=== PATIENT | male | born 1990 | race Caucasian/White ===

== ENCOUNTER 2022-09-12 08:26 | Outpatient (CLI) | payer MEDICAID, SELFPAY | END 2022-09-12 08:27 | disposition home or self-care (01) | LOC: NFLDREF 09-13 01:36 | PROVIDERS: PCP Family Medicine; Referring Provider Family Medicine; Visit Provider Family Medicine | DX: Z00.00 Encounter for general adult medical examination without abnormal findings (principal); R94.5 Abnormal results of liver function studies; Z13.1 Encounter for screening for diabetes mellitus | CPT/HCPCS: 80061; 82947 ==

== ENCOUNTER 2023-10-28 06:11 | Outpatient (CLI) | payer MEDICAID, SELFPAY ==
--- NOTE | 2023-10-28 07:41 | W.ANESCHARGE ---
Anesthesia Charges Start Date/Time Anesthesia Start Date: 10/28/23 Anesthesia Start Time: 07:16 Stop Date/Time Anesthesia Stop Date: 10/28/23 Anesthesia Stop Time: 07:37
--- NOTE | 2023-10-28 08:51 | W.ANESCHARGE ---
Anesthesia Charges Start Date/Time Anesthesia Start Date: 10/28/23 Anesthesia Start Time: 07:16 Stop Date/Time Anesthesia Stop Date: 10/28/23 Anesthesia Stop Time: 07:37
== END 2023-10-28 06:12 | disposition home or self-care (01) ==
PROVIDERS: PCP Family Medicine; Visit Provider Surgery
DX: R19.8 Other specified symptoms and signs involving the digestive system and abdomen (principal)
CPT/HCPCS: 00731; 43239; 88305; J2704; J3010

== ENCOUNTER 2024-03-25 09:21 | Outpatient (CLI) | payer MEDICAID, SELFPAY ==
--- OUTSIDE RECORDS SUMMARY | 2024-03-25 09:23 | XMS_ITS | Encounter Summary ---
Author Organization [facility] Address [address] [place] [address] Care Team Providers Care Gas Systems Worker Name Role Phone Elsewhere, Pcp Primary Care Provider Unavailabl e Reason for Visit * Reason Comments Discharge Summary Encounter Details Date Type Department Care Team (Late st Contact Info) Description 03/18/2024 Documentation Department of Rehabilitation in [address] [place] [id number] Kacey Riddle, P.T. Discharge Summary Social History Tobacco Use Types Packs/Day Years Used Date Smoking Tobacco: Every Day Cigarettes Smokeless Tobacco: Former Alcohol Use Standard Drinks/Week Comments Yes 0 (1 standard drink = 0.6 oz pur e alcohol) Rarely Nutrition Answer Date Recorded Nutrition: EVOO Fat Source Unknown 08/04 Nutrition: Servings of Fruits/Vegetables per Day Not on file 08/04/2020 Dental Answer Date Recorded Dental: Regular Dentist Unknown 08/05/19 21 Sex and Gender Information Value Date Recorded Sex Assigned at Not on file Legal Sex Male 3:16 PM SALES OFFICE ASSISTANT Gender Identity Not on file Sexual Orientation Not on file documented as of this encounter Progress Notes * Kacey Riddle, P.T. - 03/18/2024 2:01 PM CDT PHYSICAL THERAPY DISCHARGE NOTE Medical Diagnosis: Pain Low Back Unspecified Date of Onset: 12/15/2023 Start of care date: 01/13/2024 Number of visits from start of care: 3 Date of final visit: 02/17/2024 DISCHARGE STATUS STATUS OF GOALS: Current status unknown as pt has not been seen in physical therapy since their last visit. REASON FOR DISCHARGE: Pt did not return for therapy. DISCHARGE PLAN/RECOMMENDATIONS: The patient is encouraged to continue with therapeutic recommendations provided throughout the course of care. If additional skilled care is indicated in the future, anew physical therapy order and evaluation would be required. documented in this encounter Plan of Treatment Not on file documented as of this encounter Visit Diagnoses Not on filedocumented in this encounter Additional Health Concerns Assessment Noted Time PHQ-9 Depression Total Score: 9 07/16/19 12 9:00 AM SALES OFFICE ASSISTANT documented as of this encounter Care Teams Gas Systems Worker Relationship Specialty Start Date End Date Elsewhere, Pcp PCP - General Family Medicine 08/08/18 documented as of this encounter
--- OUTSIDE RECORDS SUMMARY | 2024-03-25 09:23 | XMS_ITS | Referral Summary ---
Author Organization [facility] Address [address] [place] [address] Care Team Providers Care Bull Gang Supervisor Name Role Phone Elsewhere, Pcp Primary Care Provider Unavailabl e Source Comments Patient records contain information from all sites at [facility]. For routine questions regarding patient records, call [phone] during business hours, M-F 8:00 AM - 5:00 PM Central Time. Record requests for emergency care only can be directed to [phone] at any time.[facility] Encounters Date Type Department Care Team Description 03/18/2024 Documentation Department of Rehabilitation in [address] [place] [address] Kacey Riddle, P.T. Discharge Summary 02/17/2024 2:15 PM CDT Clinical Support Department of Rehabilitation in [address] [place] [address] Jay Jackson M.D. Kacey Riddle, P.T. Pain Low Back Unspecified 01/23/2024 12:30 PM CDT Clinical Support Department of Rehabilitation in [address] [place] [address] Jay Jackson M.D. Vika Winslow P.T.Antoine Pain Low Back Unspecified 01/13/2024 4:00 PM CDT Comprehensive Visit Department of Rehabilitation in [address] [place] [address] Jay Jackson M.D. Kacey Riddle, P.T. Pain Low Back Unspecified (Primary Dx); Other Chronic Pain from Last 3 Months Allergies No known active allergies Medications NYASIA MAINTENA 300 mg injection INJECT 300 MG INTRAMUSCULARLY EVERY FOUR WEEKS 5 07/16/19 19 Active clonazePAM (KlonoPIN) 1 mg tablet TAKE ONE TABLET BY MOUTH IN THE MORNING AND 2 TABLETS BY MOUTH AT BEDTIME 3 07/17/19 19 Active cyclobenzaprin e (FLEXERIL) 10 mg tablet Take 1 tablet by mouth. 12/19/19 17 Active HYDROcodone-ac etaminophen (NORCO) 10-325 mg per tablet TAKE 1-2 TABLETS BY MOUTH EVERY 4-6 HOURS NEEDED FOR POST PROCEDURE PAIN DO NOT EXCEED 8 TABLETS PER DAY 0 08/04/19 19 Active naproxen (NAPROSYN) 500 mg tablet TAKE ONE TABLET BY MOUTH TWO TIMES A DAY NEEDED 0 06/18/19 19 Active valbenazine (INGREZZA) 80 mg capsule capsule Take 1 capsule by mouth. 02/18/20 17 Active omeprazole 20 mg tablet,delayed release (DR/EC) Take 20 mg by mouth. 01/27/20 18 Active QUEtiapine (SEROquel) 25 mg tablet Take 25 mg by mouth. 10/15/19 17 Active cyclobenzaprin e (FLEXERIL) 10 mg tablet daily as needed. Active naproxen (NAPROSYN) 500 mg tablet as needed. Active cyclobenzaprin e (FLEXERIL) 1.25 mg tablet daily as needed. Active dextromethorph an-guaiFENesin (TUSSIN DM) 10-100 mg/5 mL liquid Adult Robitussin Peak Cold DM 10 mg-100 mg/5 mL oral liquid Active nicotine polacrilex (NICORETTE) 2 mg gum 2 (two) times a day as needed. Active esomeprazole (NexIUM) [address] capsule Take 40 mg by mouth. 11/07/19 Active memantine (NAMENDA) 10 mg tablet Take 10 mg by mouth 2 (two) times a day. 05/22/20 22 Active modafiniL (PROVIGIL) 200 mg tablet Take 400 mg by mouth daily. 05/11/20 22 Active ARIPiprazole (ABILIFY) 20 mg tablet Take 20 mg by mouth daily. 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 02/10/2013 Schizophrenia Paranoid 02/10/2013 Dependence Nicotine 02/10/2013 Noncompliance With Medication Regimen 02/10/2013 Other Specified Anxiety Disorders 02/21/2011 Injury Urethra Initial 09/28/2008 Hematuria 09/28/2008 Immunizations Name Administration Dates Next Due Influenza TIV (IM) 03/01/2013,03/13/2012 Influenza, Seasonal, Injectable 03/01/2013,03/13 Tdap 03/16/2012 Social History Tobacco Use Types Packs/Day Years Used Date Smoking Tobacco: Every Day Cigarettes Smokeless Tobacco: Former Tobacco Cessation:Ready to Q uit: Not Asked; Counseling Given: Not Answered Alcohol Use Standard Drinks/Week Comments Yes 0 [...] on file Legal Sex Male 3:16 PM CHARGEBACK ANALYST Gender Identity Not on file Sexual Orientation Not on file Last Filed Vital Signs Vital Sign Reading Time Taken Comments Blood Pressure 109/77 07/20/2023 1:00 AM CHARGEBACK ANALYST Pulse 86 07/20/2023 1:00 AM CHARGEBACK ANALYST Temperature 36.4 ??C (97.5 ??F) 05/29/2023 9:15 PM CS T Respiratory Rate 12 07/20/2023 1:00 AM CHARGEBACK ANALYST Oxygen Saturation 95% 07/20/2023 1:00 AM CHARGEBACK ANALYST Inhaled Oxygen Concentration - - Weight 114 kg (251 lb 5.2 oz) 07/19/2023 9:54 PM CHARGEBACK ANALYST Height 180 cm (5' 10.87) 07/25/2014 11:56 AM CS T Body Mass Index 35.19 07/25/2014 11:56 AM CHARGEBACK ANALYST Plan of Treatment Not on file Procedures Procedure Name Priority Date/Time Associated Diagnosis Comments COMPREHENSIVE METABOLIC PANEL, S/P STAT 07/19/2023 10:36 PM CHARGEBACK ANALYST from Last 3 Months or Most Recently Relevant to Health Maintenance Results * (ABNORMAL) Comprehensive Metabolic Panel (07/19/2023 10:36 PM CHARGEBACK ANALYST) Potassium, P 4.4 3.6 - 5.2 mmol/L 07/19/2023 11:11 PM CHARGEBACK ANALYST FRMT Sodium, P 142 135 - 145 mmol/L 07/19/2023 11:06 PM CHARGEBACK ANALYST FRMT Chloride, P 105 98 - 107 mmol/L 07/19/2023 11:06 PM CHARGEBACK ANALYST FRMT Bicarbonate, P 26 22 - 29 mmol/L 07/19/2023 11:06 PM CHARGEBACK ANALYST FRMT Anion Gap, P 11 7 - 15 07/19/2023 11:06 PM CHARGEBACK ANALYST FRMT BUN (Blood Urea Nitrogen), P 11 8 - 24 mg/dL 07/19/2023 11:06 PM CHARGEBACK ANALYST FRMT Creatinine 0.75 0.74 - 1.35 mg/dL 07/19/2023 11:06 PM CHARGEBACK ANALYST FRMT Estimated GFR (eGFR) >90 >=60 mL/min/BS A 07/19/2023 11:06 PM CHARGEBACK ANALYST FRMT Comment: Estimated GFR calculated using the 2020 CKD_EPI creatinine equation. Calcium, Total, P 10.0 8.6 - 10.0 mg/dL 07/19/2023 11:06 PM CHARGEBACK ANALYST FRMT Glucose, P 118 70 - 140 mg/dL 07/19/2023 11:06 PM CHARGEBACK ANALYST FRMT Protein, Total, P 7.4 6.3 - 7.9 g/dL 07/19/2023 11:06 PM CHARGEBACK ANALYST FRMT Albumin, P 4.8 3.5 - 5.0 g/dL 07/19/2023 11:06 PM CHARGEBACK ANALYST FRMT Aspartate Aminotransferase (AST), P 46 8 - 48 U/L 07/19/2023 11:20 PM CHARGEBACK ANALYST FRMT Alkaline Phosphatase, P 98 40 - 129 U/L 07/19/2023 11:06 PM CHARGEBACK ANALYST FRMT Alanine Aminotransferase (ALT), P 96(H) 7 - 55 U/L 07/19/2023 11:06 PM CHARGEBACK ANALYST FRMT Bilirubin, Total, P <0.2 0.0 - 1.2 mg/dL 07/19/2023 11:20 PM CHARGEBACK ANALYST FRMT Blood (Blood, Venous) 07/19/2023 10:36 PM CHARGEBACK ANALYST 07/19/2023 10:39 PM CHARGEBACK ANALYST us Favian Carver M.D. LAB BLOOD ADD-ON Final Res ult [facility]- [address] [address], [facility] in [address] [address] from Last 3 Months or Most Recently Relevant to Health Maintenance Insurance [employer] Advance Directives For more information, please contact: [phone] Documents on File Type Date Recorded Patient Job Coach Expl anation Advance Directives 01/22/2011 12:00 AM Leg acy document. See document viewer. Care Teams Bull Gang Supervisor Relationship Specialty Start Date End Date Elsewhere, Pcp PCP - General Family Medicine 08/08/18
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
--- OUTSIDE RECORDS SUMMARY | 2024-03-25 09:23 | XMS_ITS ---
Author Organization [facility] Address [address] [place] [address] Care Team Providers Care Supervisor Ornamental Ironworking Name Role Phone Unavailable Unavailable Unavailable Surgery Details Not on file Complications Check Surgery Details section. Procedure Estimated Blood Loss Check Surgery Details section. Procedure Findings Check Surgery Details section. Procedure Specimens Taken Check Surgery Details section.
--- OUTSIDE RECORDS SUMMARY | 2024-03-25 09:23 | XMS_ITS | Encounter Summary ---
Author Organization [facility] Address [address] [place] [address] Care Team Providers Care Bursar Name Role Phone Elsewhere, Pcp Primary Care Provider Unavailabl e Reason for Visit * Physical Therapy (Routine) - Canceled Specialty Diagnoses / Procedures Referred By Contac t Referred To Contact Diagnoses Pain Low Back Unspecified Procedures PT Ongoing treatment Jay Jackson M.D. [address] [place] [address] Phone: tel: fax: [facility] Region Referral ID Status Reason Start Date Expiration Date V isits Requested Visits Authorized [id number] Canceled 01/13/2024 06/01/2024 20 20 Encounter Details Date Type Department Care Team (Latest Contact Info) Description 02/17/2024 2:15 PM CDT Clinical Support Department of Rehabilitation in [address] [place] [phone] Jay Jackson M.D. [address] [place] [address] Kacey Riddle P.T. 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 - 02/17/2024 2:15 PM CDT Physical Therapy Outpatient Treatment Note SUBJECTIVE Patient's Name: Salomón Fermin Referring Provider: Jay Jackson M.D. Visit Diagnosis: 1. Pain Low Back Unspecified Payor: [employer] / Plan: [employer] CONNECT / Product Type: Medicaid HMO / PT Next Certification Date: 04/12/24 [facility] Visit Count: 3 Patient comments: Patient has no radiating pain down his leg. He gets relief with standing extensions. OBJECTIVE Pain: 5/10 currently TREATMENT Treatment today consisted of: Manual Therapy: IASTM to bilateral lumbar paraspinals with patient in left sidelying with pillow between knees. Used GT 4 to sweep/fan and GT 3 to brush lesions in those same areas. Redness noted, but no bruising. Patient verbalizes understanding. Therapeutic Exercise: LTR: 15x - inc reps Pelvic Tilts: 15x - inc reps Bridges: 15x - inc reps Standing extensions: 5x Home Exercise Program/Education: Patient to continue current home program as above and increase in reps as able. Encouraged him to continue to use standing extensions as needed to help manage his pain. Patient verbalized understanding. Patient reports good HEP compliance. Assessment Clinical Impression: Patient continues to have low back pain. He reports minimal change in his symptoms since the start of therapy. The patient is compliant with his HEP. Reviewed the exercises and increased in reps as able. Continued with IASTM to decrease tension in the lumbar paraspinals. Redness noted, but no bruising. He rated his pain as 3/10 following treatment. Plan to have the patient follow up in 2-3 weeks. Functional Goals and Timeframes: PT Goal #1: Patient will be independent and consistent with his HEP. PT Goal #1 to be achieved by: 01/27/24 PT Goal #2: Patient will report his worst pain as 5/10 or better for improved quality of life. PT Goal #2 to be achieved by: 02/10/24 PT Goal #3: Patient will be able to complete housework and yardwork without increased low back pain. PT Goal #3 to be achieved by: 02/24/24 No data recorded Plan Plan: Alter current plan PT Plan Comments: Patient will follow up in 2 weeks. 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
--- OUTSIDE RECORDS SUMMARY | 2024-03-25 09:23 | XMS_ITS | Encounter Summary ---
Author Organization [facility] Address [address] [place] [address] Care Team Providers Care Logistics Operations Manager Name Role Phone Elsewhere, Pcp Primary Care Provider Unavailabl e Reason for Visit * Physical Therapy (Routine) - Canceled Specialty Diagnoses / Procedures Referred By Contjoann t Referred To Contact Diagnoses Pain Low Back Unspecified Procedures PT Ongoing treatment Jay Jackson M.D. [address] [place] [address] Phone: tel: fax: [facility] Region Referral ID Status Reason Start Date Expiration Date V isits Requested Visits Authorized [id number] Canceled 01/13/2024 06/01/2024 20 20 Encounter Details Date Type Department Care Team (Latest Contact Info) Description 01/23/2024 12:30 PM CDT Clinical Support Department of Rehabilitation in [address] [place] [phone] Jay Jackson M.D. 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 - 01/23/2024 12:30 PM CDT Physical Therapy Outpatient Treatment Note SUBJECTIVE Patient's Name: Salomón Fermin Referring Provider: Jay Jackson M.D. Visit Diagnosis: 1. Pain Low Back Unspecified Payor: [employer] / Plan: [employer] CONNECT / Product Type: Medicaid HMO / PT Next Certification Date: 04/12/24 Epic Visit Count: 2 Patient comments: Back has not been too bad but have been getting shooting pain in the left leg again. I was doing the toe touches and noticed more pain in my leg. OBJECTIVE Pain: 09/09 TREATMENT Treatment today consisted of: Manual Therapy: IASTM to bilateral lumbar paraspinals with patient in left sidelying with pillow between knees. Used GT 4/5 to sweep/fan and GT 3 to brush lesions in those same areas. Redness noted, but no bruising.Patient encouraged to drink extra fluids today and apply ice to area if soreness occurs. Patient verbalizes understanding. Therapeutic Exercise: LTR: 10x Pelvic Tilts: 10x Bridges: 10x Standing extensions: 10x Home Exercise Program/Education: Patient to continue current home program as above increasing frequency of standing extension exercises to 4-5 times per day. Patient verbalizes understanding. Patient reports good HEP compliance. Assessment Clinical Impression: Patient reports increased symptoms into left leg after doing repeated forward bending. Patient has been consistent with home exercise program but needed several verbal/tactile cues to correct form and technique in clinic today. Patient had some tightness in bilateral lumbar paraspinals with IASTM that did improve with treatment. Patient had no pain following IASTM treatment and repeated standing extension exercises. Encouraged patient to increase frequency of repeated extension exercises to manage LE symptoms. Functional Goals and Timeframes: PT Goal #1: [...] by: 02/24/24 No data recorded Plan Plan: Continue with current plan Plan for next session: continue IASTM, review and progress exercises as able GEOLOGY TEACHER Visit Trackin Time Spent with Patient Therapeutic Interventions Manual Therapy (min): 15 min Therapeutic Exercise (min): 19 min Time Tracking Total Timed Units (min): 34 min Total Treatment Time (min): 34 min documented in this encounter Plan of Treatment Not on file documented as of this encounter Visit Diagnoses Diagnosis Pain Low Back Unspecified documented in this encounter Additional Health Concerns Assessment Noted Time PHQ-9 Depression Total Score: 9 07/16/19 12 9:00 AM PUBLIC HEALTH 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
--- OUTSIDE RECORDS SUMMARY | 2024-03-25 09:23 | XMS_ITS | Clinical Summary ---
Author Organization [facility] Address [place], [place] [address] Care Team Providers Care Newspaper Editor Managing Name Role Phone Jay Jackson MD Primary Care Provider [phone] Allergies No known active allergies Medications Medication Sig Dispensed Refills Start Date End Date Status ARIPiprazole (ABILIFY DISCMELT) [address] 15 mg on the tongue once daily. Active clonazePAM (KLONOPIN) 1 mg tablet Take 1 mg by mouth 2 times daily if needed. Active ABILIFY MAINTENA 400 mg ER injectable suspension SYRINGE KIT 400 mg by Injection route every 4 weeks. Every 28 days 11/01/2016 Active HYDROcodone-acetamin ophen, 5-325 mg, (NORCO) per tablet Take 5-325 tablets by mouth every 6 hours if needed 10/23/2016 Active QUEtiapine (SEROQUEL) 25 mg tablet Take 25 mg by mouth 2 times daily if needed. 10/14/2016 Active cyclobenzaprine (FLEXERIL) 10 mg tablet Take 1 tablet by mouth 2 times daily if needed. 12/18/2016 Active INGREZZA 40 mg cap Take 2 capsules by mouth at bedtime. 02/17/2017 Active ibuprofen (ADVIL; MOTRIN) 600 mg tablet Take 600 mg by mouth. 08/24/2017 Active ARIPiprazole 400 mg ER injectable suspension SYRINGE KIT Inject intramuscular. Active valbenazine 80 mg cap Take by mouth. Active Omeprazole 20 mg tablet Take 1 tablet by mouth once daily before a meal. 0 01/26/2018 Active HYDROcodone-acetamin ophen, 7.5-300 mg, (VICODIN ES) 7.5-300 mg per tablet Take 1 tablet by mouth Earliest Fill Date: 01/26/18 Max acetaminophen dose: 4000mg in 24 hrs. 0 01/26/2018 Active naproxen (NAPROSYN) 500 mg tabletIndications:DD D (degenerative disc disease), lumbar Take 1 tablet by mouth 2 times daily with meals. 60 tablet 07/06/2018 Active Active Problems Problem Noted Date Diagnosed Date DDD (degenerative disc disease), lumbar 07/06/19 19 Learning disability 02/12/2013 Schizophrenia, paranoid, chronic with acute exac erbation 02/10/2013 H/O medication noncompliance 02/10/2013 Substance abuse 02/10/2013 Nicotine dependence 02/10/2013 Depression with anxiety 02/21/2011 Contusion, perineum 09/28/2008 Hematuria 09/28/2008 Urethral injury 09/28/2008 Paranoid schizophrenia Resolved Problems Problem Noted Date Diagnosed Date Resolved Date Tobacco abuse 09/28/2008 03/01/2013 Immunizations Name Administration Dates Next Due Influenza, IIV3 (Age >=3 years) 03/01/2013,03/13 Tdap 03/16/2012 Family History Medical History Relation Name Comments Other Other PT DENIES ANY K NOWN HISTORY OF DM, CVA, CAD, HTN, OR CANCER Diabetes Paternal Grandmother Relation Name Status Comments Mother He was 12 when she . MVA Other Paternal Grandmother Social History Tobacco Use Types Packs/Day Years Used Date Smoking Tobacco: Former Cigarettes Cigars Smokeless Tobacco: Never Tobacco Cessation:Counseling Given: Yes Comments:using electronic cigs and trying to ease off of cigs Alcohol Use Standard Drinks/Week Comments Yes 0 (1 standard drink = 0.6 oz pur e alcohol) RARE, not lately Social Connections Answer Date Recorded Frequency of Communication with Friends and Fami ly Not on file 05/31/2021 Financial Resource Strain Answer Date R ecorded Difficulty of Paying Living Expenses Not on file 05/31/2021 Difficulty of Paying Living Expenses Not on file 05/31/2021 Sex and Gender Information Value Date Recorded Sex Assigned at Not on file Gender Identity Not on file Sexual Orientation Not on file Obstetrics History Last Filed Vital Signs Vital Sign Reading Time Taken Comments Blood Pressure 126/82 06/02/2023 3:36 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 Pulse 84 06/02/2023 3:36 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 Temperature 36.6 ??C (97.8 ??F) 06/02/2023 1:51 PM CS T Respiratory Rate 16 06/02/2023 3:36 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 Oxygen Saturation 96% 06/02/2023 3:36 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 Inhaled Oxygen Concentration - - Weight 112.5 kg (248 lb) 06/02/2023 1:51 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 Height 180.3 cm (5' 11) 06/02/2023 1:51 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 Body Mass Index 34.59 06/02/2023 1:51 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 Plan of Treatment Health Maintenance Due Date Last Done Comments Depression screening for age 12+ 2001 HIV for age 15-65 2004 Hepatitis C screening for age 18-79 2007 BMI (ht and wt on same day) for age 18+ 04/26/2021 04/26/2020, 08/31/2018, 07/06/2018, Additional history exists Tetanus booster 03/16/2022 03/16/2012 COVID-19 vaccine series ( season) 2024 Influenza for age 9-49 02/01/2024 03/01/2013, 2011 Tdap Completed 03/16/2012 Pneumococcal series for age 6-64 Aged Out No longer eligible based on patient's age to complete this topic Advance Directives * Full Code (Latest Code Status on File) Date Activated Date Inactivated Comments 02/28/2013 9:48 PM 03/03/2013 1:06 PM * Full Code Date Activated Date Inactivated Comments 02/09/2013 8:54 PM 02/19/2013 1:03 PM * Full Code Date Activated Date Inactivated Comments 09/28/2008 5:24 AM 09/28/2008 10:06 PM Care Teams Newspaper Editor Managing Relationship Specialty Start Date End Date Jay Jackson MD [address] [place] [address] PCP - General Family Practice 02/20/17
--- OUTSIDE RECORDS SUMMARY | 2024-03-25 09:23 | XMS_ITS | Encounter Summary ---
Author Organization [facility] Address [address] [place] [address] Care Team Providers Care Hand Buffer Name Role Phone Elsewhere, Pcp Primary Care Provider Unavailabl e Reason for Referral * Outpatient (Routine) - Closed Specialty Diagnoses / Procedures Referred By Contact Referred To Contact Physical Medicine and Rehabilitation Diagnoses Pain Low Back Unspecified Other Chronic Pain Jay Jackson M.D. [address] [place] [phone] Phone: tel: fax: [facility] Region Referral ID Status Reason Start Date Expiration Date Visits Re quested Visits Authorized [id number] Closed 12/15/2023 06/15/2025 1 1 Encounter Details Date Type Department Care Team (Late st Contact Info) Description 12/15/2023 [facility] [address] [place] [address] Jay Jackson M.D. 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 Gender Identity Not on file Sexual Orientation Not on file documented as of this encounter Plan of Treatment Scheduled Referrals Name Type Priority Associated Diagnoses Order Schedule Physical Medicine & Rehabilitation Referral Outpatient Referral Routine Pain Low Back Unspecified Other Chronic Pain Expected: 12/15/2023 (Approximate), Expires: 03/16/2025 documented as of this encounter Visit Diagnoses Diagnosis Pain Low Back Unspecified- Primary Other Chronic Pain documented in this encounter Additional Health Concerns Assessment Noted Time PHQ-9 Depression Total Score: 9 07/16/19 12 9:00 AM CADDIE SUPERVISOR documented as of this encounter Care Teams Hand Buffer Relationship Specialty Start Date End Date Elsewhere, Pcp PCP - General Family Medicine 08/08/18 documented as of this encounter
--- OUTSIDE RECORDS SUMMARY | 2024-03-25 09:23 | XMS_ITS | Clinical Summary ---
Author Organization [facility] Address [address] [place] [address] [address] [place] [address] Care Team Providers Care Android Framework Developer Name Role Phone Pcp, No MD Primary Care Provider Unavailabl e Provider, No Attributed RESOURCE Unavailable Unavailable Allergies No known active allergies Medications Medication Sig Dispensed Refills Start Date End Date Status clonazePAM (KLONOPIN) 1 mg tablet TAKE ONE TABLET BY MOUTH IN THE MORNING AND 2 TABLETS BY MOUTH AT BEDTIME 07/17/2018 Active cyclobenzaprine (FLEXERIL) 10 mg tablet as needed 12/18/2016 Active HYDROcodone-acetamino phen (NORCO) 5-325 mg tablet Take 1 tablet by mouth 2 times a day as needed 10/16/2021 Active memantine (NAMENDA) 5 mg tablet Take 5 mg by mouth 2 times a day 10/10/2021 Active modafinil (PROVIGIL) 200 mg tablet Take 300 mg by mouth 1 time per day 10/15/2021 Active naproxen (NAPROSYN) 500 mg tabletIndications:Ost eoarthritis, generalized Take 1 tablet (500 mg) by mouth 2 times a day 180 tablet 4 11/06/2021 Active ARIPiprazole (ABILIFY) 20 mg tablet Take 20 mg by mouth 1 time a day in the morning 11/14/2021 Active amoxicillin-clavulana te potassium (AUGMENTIN) 875-125 mg tabletIndications:Dog bite, initial encounter Take 1 tablet by mouth 2 times a day 20 tablet 02/21/2022 Active Active Problems Problem Noted Date Diagnosed Date Degeneration of intervertebral disc of lumbar re gion 07/06/2018 Academic skill disorder 02/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 Paranoid schizophrenia 02/10/2013 Psychoactive substance abuse 02/10/2013 Other specified anxiety disorders 02/21/2011 Immunizations Name Administration Dates Next Due Influenza Vaccine 03/01/2013,03/13/2012 Influenza Vaccine,unspecified 03/01/2013, 012 TDAP 02/21/2022,03/16/2012 Family History Medical History Relation Comments Prostate Cancer Father Diabetes Paternal Grandmother Relation Status Comments Father Paternal Grandmother Social History Tobacco Use Types Packs/Day Years Used Date Smoking Tobacco: Every Day Cigarettes Cigars Smokeless Tobacco: Never Tobacco Cessation:Ready to Q uit: Yes Alcohol Use Standard Drinks/Week Comments Not Currently 0 (1 standard drink = 0.6 oz pur e alcohol) Sex and Gender Information Value Date Recorded Sex Assigned at Not on file Gender Identity Not on file Sexual Orientation Not on file Last Filed Vital Signs Vital Sign Reading Time Taken Comments Blood Pressure 146/77 02/21/2022 8:19 PM CDT Pulse 90 02/21/2022 8:19 PM CDT Temperature 37.1 ??C (98.7 ??F) 02/21/2022 8:19 PM CD T Respiratory Rate 17 02/21/2022 8:19 PM CDT Oxygen Saturation 97% 02/21/2022 8:19 PM CDT Inhaled Oxygen Concentration - - Weight 109.8 kg (242 lb) 02/21/2022 8:19 PM CDT Height 179.1 cm (5' 10.5) 11/05/2021 1:23 PM CD T Body Mass Index 34.23 11/05/2021 1:23 PM CDT Plan of Treatment Health Maintenance Due Date Last Done Comments Hepatitis C Screening 1989 HIV One Time Screening Ages 15-65 2004 Hepatitis B Vaccine (1 of 3 - 19+ 3-dose series) 2008 Lipid Screening 2010 HPV 27-45yr Vaccine (1 - 3-DOSE SERIES) 2016 Glucose Value 11/30/2022 11/30/2021 Covid-19 Vaccine (3 - 2023- season) 2024 10/30/2020, 10/02/2020 Influenza Vaccine (#1) 2024 3, 03/01/2013, 03/13/2012, Additional history exists TDAP/TD (3 - Td or Tdap) 02/22/2032 02/21/2022, 03/02 Hepatitis A Vaccine Aged Out No longe r eligible based on patient's age to complete this topic Pneumococcal Vaccine (0-5yr; and At-risk 6-64 yr) Aged Out No longer eligible based on patient's age to complete this topic Procedures Procedure Name Priority Date/Time Associated Diagnosis Comments COMPREHENSIVE METABOLIC PANEL Routine 11/30/2021 4:02 PM CDT Generalized abdominal pain from Last 3 Months or Most Recently Relevant to Health Maintenance Results * (ABNORMAL) COMPREHENSIVE METABOLIC PANEL (11/30/2021 4:02 PM CDT) Glucose 150(H) 70 - 110 mg/dL 11/30/2021 4:58 PM CDT [facility] BUN 9 7 - 18 mg/dL 11/30/2021 4:58 PM CDT [facility] Creatinine 1.10 0.70 - 1.30 mg/dL 11/30/2021 4:58 PM CDT [facility] BUN/Creatinine Ratio 8.2(L) 10.0 - 25.0 11/30/2021 4:58 PM CDT [facility] Sodium 142 135 - 145 meq/L 11/30/2021 4:58 PM CDT [facility] Potassium 4.0 3.3 - 5.1 meq/L 11/30/2021 4:58 PM CDT [facility] Chloride 107 98 - 107 meq/L 11/30/2021 4:58 PM CDT [facility] CO2 24 21 - 32 meq/L 11/30/2021 4:58 PM CDT [facility] Anion Gap with K 15 10 - 20 meq/L 11/30/2021 4:58 PM CDT [facility] Calcium 9.3 8.3 - 10.5 mg/dL 11/30/2021 4:58 PM CDT [facility] Protein Total 7.8 6.4 - 8.2 g/dL 11/30/2021 4:58 PM CDT [facility] Albumin 4.4 3.4 - 5.0 g/dL 11/30/2021 4:58 PM CDT [facility] Alkaline Phosphatase 97 16 - 116 U/L 11/30/2021 4:58 PM CDT [facility] AST - SGOT 34 15 - 37 U/L 11/30/2021 4:58 PM CDT [facility] ALT - SGPT 74(H) 16 - 63 U/L 11/30/2021 4:58 PM CDT [facility] Bilirubin Total 0.4 0.0 - 1.0 mg/dL 11/30/2021 4:58 PM CDT [facility] Age 31 Years 11/30/2021 4:58 PM CDT [facility] eGFR Non- 78 >=60 mL/min/1.7 3m2 11/30/2021 4:58 PM CDT [facility] eGFR >90 >=60 mL/min/1.7 3m2 11/30/2021 4:58 PM CDT [facility] Blood BLOOD SPECIMEN / Unknown Venipuncture / Unknown 11/30/2021 4:02 PM CDT 11/30/2021 4:03 PM CDT Rochelle Bonner MD LAB BLOOD [facility] [address] [place] [address] from Last 3 Months or Most Recently Relevant to Health Maintenance Care Teams Android Framework Developer Relationship Specialty Start Date End Date PcpEne MD You have no PCP on file PCP - General 11/05/21 Provider, No Attributed, RESOURCE [address] PCP - Attributed Provider 02/25/24
--- OUTSIDE RECORDS SUMMARY | 2024-03-25 09:23 | XMS_ITS | Clinical Summary ---
Author Organization [facility] Address [address] [place] [address] Care Team Providers Care Agricultural Appraiser Name Role Phone Elsewhere, Pcp Primary Care Provider Unavailabl e Source Comments Patient records contain information from all sites at [facility]. For routine questions regarding patient records, call [phone] during business hours, M-F 8:00 AM - 5:00 PM Central Time. Record requests for emergency care only can be directed to [phone] at any time.[facility] Allergies No known active allergies Medications ABILIFY MAINTENA 300 mg injection INJECT 300 MG [...] mouth 2 (two) times a day. 05/22/20 Active modafiniL (PROVIGIL) 200 mg tablet Take 400 mg by mouth daily. 05/11/20 Active ARIPiprazole (ABILIFY) 20 mg tablet Take 20 mg by mouth daily. 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 Discharge Summary 02/17/2024 2:15 PM CDT Clinical Support Department of Rehabilitation in [address] [place] [address] Jay Jackson M.D. Kacey Riddle, P.T. Pain Low Back Unspecified 01/23/2024 12:30 PM CDT Clinical Support Department of Rehabilitation in [address] [place] [address] Ailabouni, Jay D, MVika Gamino P.TJosé Pain Low Back Unspecified 01/13/2024 4:00 PM CDT Comprehensive Visit Department of Rehabilitation in [address] [place] [address] Jay Jackson M.D. Philipp, Whitney, P.T. Pain Low Back Unspecified (Primary Dx); Other Chronic Pain from Last 3 Months Immunizations Name Administration Dates Next Due Influenza [...] on file Legal Sex Male 3:16 PM WALL ATTENDANT Gender Identity Not on file Sexual Orientation Not on file Last Filed Vital Signs Vital Sign Reading Time Taken Comments Blood Pressure 109/77 07/20/2023 1:00 AM WALL ATTENDANT Pulse 86 07/20/2023 1:00 AM WALL ATTENDANT Temperature 36.4 ??C (97.5 ??F) 05/29/2023 9:15 PM CS T Respiratory Rate 12 07/20/2023 1:00 AM WALL ATTENDANT Oxygen Saturation 95% 07/20/2023 1:00 AM WALL ATTENDANT Inhaled Oxygen Concentration - - Weight 114 kg (251 lb 5.2 oz) 07/19/2023 9:54 PM WALL ATTENDANT Height 180 cm (5' 10.87) 07/25/2014 11:56 AM CS T Body Mass Index 35.19 07/25/2014 11:56 AM WALL ATTENDANT Plan of Treatment Health Maintenance Due Date Last Done Comments HIV Screening 1989 Hepatitis C Screening 1989 Hepatitis B Vaccines (1 of 3 - 19+ 3-dose series) 2008 Depression Screening (Annual PHQ-2) 06/02/2023 COVID-19 Vaccine (3 - season) 2024 10/30/2020, 10/02/2020 Influenza Vaccine (#1) 2024 3, 03/01/2013, 03/13/2012, Additional history exists Glucose Test for Med Monitoring 07/19/2024 07/19/2023, 06/02/2023, 05/29/2023, Additional history exists DTaP,Tdap,and Td Vaccines (3 - Td or Tdap) 02/22/2032 02/21/2022, 03/16/2012 Pneumococcal vaccine (0-64 years) Completed 10/06/2023 HPV Vaccines Aged Out No longer eligi ble based on patient's age to complete this topic Procedures Procedure Name Priority Date/Time Associated Diagnosis Comments COMPREHENSIVE METABOLIC PANEL, S/P STAT 07/19/2023 10:36 PM WALL ATTENDANT from Last 3 Months or Most Recently Relevant to Health Maintenance Results * (ABNORMAL) Comprehensive Metabolic Panel (07/19/2023 10:36 PM WALL ATTENDANT) Potassium, P 4.4 3.6 - 5.2 mmol/L 07/19/2023 11:11 PM WALL ATTENDANT FRMT Sodium, P 142 135 - 145 mmol/L 07/19/2023 11:06 PM WALL ATTENDANT FRMT Chloride, P 105 98 - 107 mmol/L 07/19/2023 11:06 PM WALL ATTENDANT FRMT Bicarbonate, P 26 22 - 29 mmol/L 07/19/2023 11:06 PM WALL ATTENDANT FRMT Anion Gap, P 11 7 - 15 07/19/2023 11:06 PM WALL ATTENDANT FRMT BUN (Blood Urea Nitrogen), P 11 8 - 24 mg/dL 07/19/2023 11:06 PM WALL ATTENDANT FRMT Creatinine 0.75 0.74 - 1.35 mg/dL 07/19/2023 11:06 PM WALL ATTENDANT FRMT Estimated GFR (eGFR) >90 >=60 mL/min/BS A 07/19/2023 11:06 PM WALL ATTENDANT FRMT Comment: Estimated GFR calculated using the 2020 CKD_EPI creatinine equation. Calcium, Total, P 10.0 8.6 - 10.0 mg/dL 07/19/2023 11:06 PM WALL ATTENDANT FRMT Glucose, P 118 70 - 140 mg/dL 07/19/2023 11:06 PM WALL ATTENDANT FRMT Protein, Total, P 7.4 6.3 - 7.9 g/dL 07/19/2023 11:06 PM WALL ATTENDANT FRMT Albumin, P 4.8 3.5 - 5.0 g/dL 07/19/2023 11:06 PM WALL ATTENDANT FRMT Aspartate Aminotransferase (AST), P 46 8 - 48 U/L 07/19/2023 11:20 PM WALL ATTENDANT FRMT Alkaline Phosphatase, P 98 40 - 129 U/L 07/19/2023 11:06 PM WALL ATTENDANT FRMT Alanine Aminotransferase (ALT), P 96(H) 7 - 55 U/L 07/19/2023 11:06 PM WALL ATTENDANT FRMT Bilirubin, Total, P <0.2 0.0 - 1.2 mg/dL 07/19/2023 11:20 PM WALL ATTENDANT FRMT Blood (Blood, Venous) 07/19/2023 10:36 PM WALL ATTENDANT 07/19/2023 10:39 PM WALL ATTENDANT us Favian Carver M.D. LAB BLOOD ADD-ON Final Res ult [place] [address], [facility] [place] [address] from Last 3 Months or Most Recently Relevant to Health Maintenance Insurance [employer] Member Subscriber Plan / Payer (Ef fective 2022-Present) Name:Salomón Fermin Relation to Subscriber:Self Name:Salomón Fermin Payer ID:[id number] (NAIC) _[id number] Type:Medicaid HMO Address: [facility] [address] [id number] Advance Directives For more information, please contact: [phone] Documents on File Type Date Recorded Patient Dispatch Officer Expl anation Advance Directives 01/22/2011 12:00 AM Leg acy document. See document viewer. Care Teams Agricultural Appraiser Relationship Specialty Start Date End Date Elsewhere, Pcp PCP - General Family Medicine 08/08/18
--- NOTE | 2024-03-25 09:30 | CRLHL7_ITS ---
For Patients: As a result of the 21st Century Cures Act, medical imaging exams and procedure reports are released immediately into your electronic medical record. You may view this report before your referring provider. If you have questions, please contact your health care provider. INDICATION: Epigastric abdominal pain. Retained food at the time of endoscopy. TECHNIQUE: 1.1 mCi Tc-99m labeled Sulfur Colloid mixed in with a predetermined solid meal (oatmeal). Imaging performed up to 90 minutes. FINDINGS: No scintigraphic evidence for delayed gastric emptying. 0 minutes: 100 percent of activity remains. 30 minutes: 33 percent of activity remains. 60 minutes: 15 percent of activity remains. 90 minutes: 12 percent of activity remains. IMPRESSION: No scintigraphic evidence for delayed gastric emptying. Dictated by Melvin Haile MD @ 03/25/2024 12:55:29 PM (Electronically Signed)
== END 2024-03-25 09:22 | disposition home or self-care (01) ==
LOC: NM 09:21
PROVIDERS: PCP Family Medicine; Visit Provider Family Medicine
DX: R10.13 Epigastric pain (principal)
CPT/HCPCS: 78264; A9541

== ENCOUNTER 2024-12-29 09:20 | Outpatient (CLI) | payer MEDICAID, SELFPAY | END 2024-12-29 09:21 | disposition home or self-care (01) | LOC: NFLDREF 12-30 17:11 | PROVIDERS: PCP Family Medicine; Referring Provider Family Medicine; Visit Provider Family Medicine | DX: E78.5 Hyperlipidemia, unspecified (principal); R53.83 Other fatigue; R73.01 Impaired fasting glucose | CPT/HCPCS: 80061; 82947; 84439; 84443 ==

== ENCOUNTER 2025-02-23 13:10 | Outpatient (CLI) | payer MEDICAID, SELFPAY | END 2025-02-23 13:11 | disposition home or self-care (01) | LOC: NFLDREF 02-28 03:01 | PROVIDERS: PCP Family Medicine; Referring Provider Family Medicine; Visit Provider Family Medicine | DX: E03.9 Hypothyroidism, unspecified (principal) | CPT/HCPCS: 84443 ==

== ENCOUNTER 2025-04-13 11:04 | Outpatient (CLI) | payer MEDICAID, SELFPAY | END 2025-04-13 11:05 | disposition home or self-care (01) | LOC: NFLDREF 04-28 13:51 | PROVIDERS: PCP Family Medicine; Referring Provider Family Medicine; Visit Provider Family Medicine | DX: R73.01 Impaired fasting glucose (principal) | CPT/HCPCS: 82947 ==